=== PATIENT | female | born 1970 | race Caucasian/White ===

== ENCOUNTER → 2018-04-14 | Emergency (ER) | payer OTHER ==
[~2018-04-14] VITALS: Ht 167.6 cm; Wt 77.1 kg
[~2018-04-14] MED LIST: ATIVAN1 MG PO; FOLIC ACID1 MG PO; LOSARTAN-HCTZ1 EAC1 PO
== END | disposition home or self-care (01) ==
LOC: ER 09:07
DX: N39.0 Urinary tract infection, site not specified (principal)

== ENCOUNTER 2018-05-04 12:36 | Emergency (ER) | payer OTHER ==
[~2018-05-04] VITALS: Ht 167.6 cm; Wt 77.1 kg
[2018-05-04] MEDS ORDERED: ZANTAC150 M3 (12:49)
== END 2018-05-04 17:17 | disposition home or self-care (01) ==
LOC: ER 12:36
DX: M54.5 Low back pain (principal)

== ENCOUNTER 2018-11-07 08:27 | Emergency (ER) | payer OTHER ==
[~2018-11-07] VITALS: Ht 167.6 cm; Wt 78.0 kg
[~2018-11-07 08:27] MED LIST changes: +ZANTAC150 M3
== END 2018-11-07 12:31 | disposition home or self-care (01) ==
LOC: ER 08:27
DX: R50.9 Fever, unspecified (principal)

== ENCOUNTER 2022-07-17 07:22 | Day surgery (SDC) | payer OTHER ==
[~2022-07-17] VITALS: Ht 167.6 cm; Wt 79.8 kg
[~2022-07-17 07:22] MED LIST changes: +B COMPLEX1 EACH PO; +B12 ACTIVE1000 MCG PO; +COMBIGAN EYE DRO5 ML OP; +D3 + K2 DOTS 11 EACH PO; +MAGNESIUM250 M1 PO; +ZINC GLUCONATE100 MG PO
== END 2022-07-17 16:05 | disposition home or self-care (01) ==
LOC: CIR.AMB 07:22
PROVIDERS: ATTEND Obstetrics & Gynecology
DX: N95.0 Postmenopausal bleeding (principal); N84.0 Polyp of corpus uteri; D25.0 Submucous leiomyoma of uterus; Z20.822 Contact with and (suspected) exposure to COVID-19; D26.1 Other benign neoplasm of corpus uteri; I10 Essential (primary) hypertension; E11.9 Type 2 diabetes mellitus without complications; F41.9 Anxiety disorder, unspecified

== ENCOUNTER 2024-08-28 09:26 | Emergency (ER) | payer OTHER ==
[~2024-08-28] VITALS: Ht 167.6 cm; Wt 79.4 kg
[2024-08-28 09:41] VITALS: O2SAT 100
[2024-08-28] MEDS ORDERED: LUMIGAN2.5 M1 (09:43)
[2024-08-28] MEDS ORDERED: CLIMARA1 EAC2 (09:44)
[2024-08-28] MEDS ORDERED: cloNIDine HCL 0.2 MG TABLET PO ONE (10:00)
[2024-08-28] MEDS ORDERED: CLONIDINE HCL 0.1 MG TABLET PO ONE (10:02)
[2024-08-28 11:19] VITALS: BP 110/70
== END 2024-08-28 12:06 | disposition home or self-care (01) ==
LOC: ER 09:30
DX: I10 Essential (primary) hypertension (principal)

== ENCOUNTER 2025-01-16 15:56 | Emergency (ER) | payer OTHER ==
[~2025-01-16] VITALS: Ht 152.4 cm; Wt 77.1 kg
[~2025-01-16 15:56] MED LIST changes: +CLIMARA1 EAC2; +LUMIGAN2.5 M1
[2025-01-16] MEDS ORDERED: ATIVAN1 M1 PO (16:15)
[2025-01-16] MEDS ORDERED: NORVASC5 MG PO (16:15)
[2025-01-16] MEDS ORDERED: KETOROLAC TROMETHAMINE 30 MG VIAL IM ONE (18:15)
[2025-01-16] MEDS ORDERED: FAMOTIDINE/PF 20 MG/2 ML VIAL IV ONE (18:15)
[2025-01-16] MEDS ORDERED: KETOROLAC TROMETHAMINE 30 MG VIAL ONE (18:25)
[2025-01-16] MEDS ORDERED: FAMOTIDINE/PF 20 MG/2 ML VIAL ONE (18:26)
[2025-01-16 19:07] LABS: BASO % 0.6 % (0.1-1.2); EOS # 0.09 (0.04-0.54); EOS % 1.3 % (0.7-7.0); LYMPH # 1.71 (1.18-3.74); LYMPH % 25.4 % (19.3-53.1); MEAN PLATELET VOLUME 11.80 fl (9.4-12.4); MONO # 0.57 (0.24-0.82); MONO % 8.5 % (4.7-12.5); NEUT # 4.30 (1.56-6.13); NEUT % 64.1 % (34.0-71.1); RED CELL DISTRIBUTION WIDTH 13.2 % (11.6-14.4)
[2025-01-16 19:43] LABS: URINE APPEARANCE Clear; URINE BILIRRUBIN Negative (NEGATIVE); URINE BLOOD Negative; URINE COLOR Yellow; URINE GLUCOSE Negative (NEGATIVE); URINE KETONE Negative (NEGATIVE); URINE LEUKOCYTE Trace; URINE NITRATE Negative; URINE PROTEIN Negative (NEGATIVE); URINE UROBILINOGEN 0.2 E.U./dl
[2025-01-16 19:45] LABS: ALT/SGPT 21.0 U/L (12-78); AST/SGOT 17.0 U/L (15-37); BILIRUBIN TOTAL 0.53 mg/dL (0.3-1.2); BUN CREA RATIO 13.0 (7.0-25.0); CREATININE SERUM 0.94 mg/dL (0.55-1.02); GFR 61.6; GLOBULINA 4.1 G/DL (2.4-3.5); GLUCOSE FASTING 96.0 mg/dL (65-100); OSMOLALITY SERUM 286.0 MOSM/KG (275-295)
[2025-01-16 19:45] LABS: URINE BACTERIA 662.1 uL (0.0-1933); URINE EPITHELIAL CELLS 7.5 uL (0.0-38.8); URINE RBC 3.2 uL (0.0-20.8); URINE WBC 13.5 uL (0.0-23.2)
[2025-01-16 19:46] LABS: URINE CAST 0.00 uL (0.0-1.40)
== END 2025-01-17 01:04 | disposition home or self-care (01) ==
LOC: ER 15:56
PROVIDERS: Student in an Organized Health Care Education/Training Program
DX: K29.70 Gastritis, unspecified, without bleeding (principal)